=== PATIENT | female | born 1950 | race Caucasian/White ===

== ENCOUNTER → 2016-12-13 | Outpatient (CLI) | payer BC ==
[~2016-12-13] MED LIST: ATV5 PO; CALC500C70 PO; CALC625T8 PO; CRD200 PO; CRG125 PO; DOCU100C31 PO; MULT-190 PO; MULTIVITAMIN SENIOR PO; SIMV40TA2 PO; SYMIN160 INH
[2016-12-13 09:44] LABS: BASO % 0.5 %; BASO ABS # 0.03 K/uL (0-0.2); COMPLETE YES; EOS % 2.3 %; HEMATOCRIT 41.1 % (37-47); IG% 0.4 %; LYMPH % 26.8 %; LYMPH ABS # 1.49 K/uL (1.2-3.4); MEAN CELL VOLUME 102.2 fL (80-100); MEAN CORPUSCULAR HEMOGLOBIN 33.8 pg (25-34); MEAN CORPUSCULAR HGB CONC 33.1 g/dl (32-36); MONO % 7.7 %; NEUT % 62.3 %; PLATELET COUNT 258 K/uL (130-400); RED BLOOD COUNT 4.02 M/uL (4.2-5.4); WHITE BLOOD COUNT 5.55 K/uL (4.8-10.8)
[2016-12-13 09:59] LABS: ALT/SGPT 24 U/L (12-78); BLOOD UREA NITROGEN 10 mg/dl (7-18); CARBON DIOXIDE 30 mmol/L (21-32); CHLORIDE 104 mmol/L (98-107); CHOLESTEROL 219 mg/dl (0-200); CREATININE 0.68 mg/dl (0.60-1.20); GLUCOSE 83 mg/dl (70-99); POTASSIUM 3.8 mmol/L (3.5-5.1); SODIUM 142 mmol/L (136-145); TRIGLYCERIDES 89 mg/dl (0-150); VERY LOW DENSITY LIPOPROT CALC 18 mg/dl
[2016-12-13 10:17] LABS: ESTIMATED AVERAGE GLUCOSE 111 mg/dl; HA1C FLAG Normal (Normal)
[2016-12-13 10:20] LABS: ALB/GLOB RATIO 0.8 (0.9-2); ALKALINE PHOSPHATASE 78 U/L (45-117); AST/SGOT 21 U/L (15-37); CHOLESTEROL/HDL RATIO 2.2; HDL CHOLESTEROL 100 mg/dl; LDL CHOLESTEROL CALCULATED 101 mg/dl
[2016-12-13 10:54] LABS: LYME DISEASE AB IGG NEG (NEG); LYME DISEASE AB IGM NEG (NEG)
[2016-12-14 11:57] LABS: C-REACTIVE PROT HIGHSEN 4.1 MG/L
--- NOTE | 2016-12-18 12:33 | CODING QUERY MEDICAL NECESSITY ---
SUPPORTING DIAGNOSIS NEEDED A supporting diagnosis is required for the test/procedure performed on this patient in order for us to be reimbursed by the patient's insurance. Please provide a supporting diagnosis for the following test/procedure listed below next to the test name along with your signature. *If there is no additional diagnosis for this patient that would support the following test/procedure please document that below next to the test/procedure. Test(s)/Procedure(s) that require a supporting diagnosis: * VITAMIN D 25-HYDROXY DIAGNOSIS: * VITAMIN B-12 LEVEL DIAGNOSIS: * C-REACTIVE PROTEIN DIAGNOSIS: * DOS: 12/13/16 Provider Signature: Date: Thank you Lisa De Paz Health Information Management Once completed, please kindly fax back to [phone] For questions please call [phone]
== END | disposition home or self-care (01) ==
LOC: C.LAB 07:04
PROVIDERS: ATTEND Family Medicine
DX: R73.09 Other abnormal glucose (principal); R53.83 Other fatigue; I10 Essential (primary) hypertension; D51.9 Vitamin B12 deficiency anemia, unspecified; E55.9 Vitamin D deficiency, unspecified

== ENCOUNTER → 2017-06-21 | Outpatient (CLI) | payer BC ==
[2017-06-21 09:34] LABS: BASO % 0.6 %; BASO ABS # 0.04 K/uL (0-0.2); COMPLETE YES; EOS % 1.8 %; HEMATOCRIT 42.4 % (37-47); IG% 0.2 %; LYMPH % 21.5 %; LYMPH ABS # 1.35 K/uL (1.2-3.4); MEAN CELL VOLUME 103.9 fL (80-100); MEAN CORPUSCULAR HEMOGLOBIN 34.3 pg (25-34); MEAN PLATELET VOLUME 10.2 fL (7.4-10.4); MONO % 5.4 %; NEUT % 70.5 %; PLATELET COUNT 275 K/uL (130-400); RED BLOOD COUNT 4.08 M/uL (4.2-5.4); WHITE BLOOD COUNT 6.27 K/uL (4.8-10.8)
[2017-06-21 09:54] LABS: ESTIMATED AVERAGE GLUCOSE 111 mg/dl; HA1C FLAG Normal (Normal)
[2017-06-21 09:58] LABS: ALT/SGPT 24 U/L (12-78); BLOOD UREA NITROGEN 12 mg/dl (7-18); BUN/CREATININE RATIO 15.9 (10-20); CALCIUM 10.1 mg/dl (8.5-10.1); CARBON DIOXIDE 31 mmol/L (21-32); CHLORIDE 102 mmol/L (98-107); CHOLESTEROL 215 mg/dl (0-200); CREATININE 0.73 mg/dl (0.60-1.20); GLUCOSE 100 mg/dl (70-99); SODIUM 139 mmol/L (136-145); TRIGLYCERIDES 46 mg/dl (0-150); URIC ACID 4.3 mg/dl (2.6-7.2); VERY LOW DENSITY LIPOPROT CALC 9 mg/dl
[2017-06-21 10:07] LABS: ALB/GLOB RATIO 0.9 (0.9-2); ALKALINE PHOSPHATASE 78 U/L (45-117); AST/SGOT 20 U/L (15-37); CHOLESTEROL/HDL RATIO 2.3; HDL CHOLESTEROL 93 mg/dl; LDL CHOLESTEROL CALCULATED 113 mg/dl; PHOSPHORUS 3.5 mg/dl (2.5-4.9)
[2017-06-24 14:39] LABS: C-REACTIVE PROT HIGHSEN 7.1 MG/L
--- NOTE | 2017-07-01 10:47 | CODING QUERY MEDICAL NECESSITY ---
CQSUPPORTING DIAGNOSIS NEEDED A supporting diagnosis is required for the test/procedure performed on this patient in order for us to be reimbursed by the patient's insurance. Please provide a supporting diagnosis for the following test/procedure listed below next to the test name along with your signature. *If there is no additional diagnosis for this patient that would support the following test/procedure please document that below next to the test/procedure. Test(s)/Procedure(s) that require a supporting diagnosis: DOS 06/21/17 C-REACTIVE PROTEIN HIGH SENSITIVITY TEST Provider Signature: Date: Thank you Lea Thacker Health Information Management Once completed, please kindly fax back to [phone] For questions please call [phone]
== END | disposition home or self-care (01) ==
LOC: C.LAB 07:46
PROVIDERS: ATTEND Family Medicine
DX: R73.09 Other abnormal glucose (principal); E55.9 Vitamin D deficiency, unspecified; D51.9 Vitamin B12 deficiency anemia, unspecified

== ENCOUNTER → 2017-12-19 | Outpatient (CLI) | payer BC ==
[2017-12-19 09:33] LABS: BASO % 0.7 %; BASO ABS # 0.04 K/uL (0-0.2); EOS % 2.6 %; EOS ABS # 0.15 K/uL (0-0.5); HEMATOCRIT 42.5 % (37-47); HEMOGLOBIN 14.3 g/dL (12.0-16.0); IG# 0.01 K/uL (0.00-0.02); LYMPH % 31.1 %; LYMPH ABS # 1.81 K/uL (1.2-3.4); MEAN CELL VOLUME 103.4 fL (80-100); MEAN CORPUSCULAR HEMOGLOBIN 34.8 pg (25-34); MEAN CORPUSCULAR HGB CONC 33.6 g/dl (32-36); MEAN PLATELET VOLUME 10.3 fL (7.4-10.4); MONO % 7.2 %; MONO ABS # 0.42 K/uL (0.11-0.59); NEUT % 58.2 %; NEUT ABS # 3.39 K/uL (1.4-6.5); PLATELET COUNT 265 K/uL (130-400); RED CELL DISTRIBUTION WIDTH CV 12.9 % (11.5-14.5); RED CELL DISTRIBUTION WIDTH SD 48.4 fL (36.4-46.3); WHITE BLOOD COUNT 5.82 K/uL (4.8-10.8)
[2017-12-19 10:24] LABS: ALBUMIN 3.7 gm/dl (3.4-5.0); ALT/SGPT 24 U/L (12-78); AST/SGOT 22 U/L (15-37); BLOOD UREA NITROGEN 15 mg/dl (7-18); CALCIUM 9.5 mg/dl (8.5-10.1); CARBON DIOXIDE 27 mmol/L (21-32); CHOLESTEROL 213 mg/dl (0-200); CREATININE 0.74 mg/dl (0.60-1.20); GLUCOSE 79 mg/dl (70-99); SODIUM 138 mmol/L (136-145); TRANSFERRIN 286 mg/dl (200-360); URIC ACID 4.4 mg/dl (2.6-7.2)
[2017-12-19 10:33] LABS: ALKALINE PHOSPHATASE 83 U/L (45-117); LDL CHOLESTEROL CALCULATED 109 mg/dl
[2017-12-19 10:55] LABS: HEMOGLOBIN A1C 5.5 % (4.5-5.6)
== END | disposition home or self-care (01) ==
LOC: C.LAB 07:25
PROVIDERS: ATTEND Family Medicine
DX: E88.81 Metabolic syndrome and other insulin resistance (principal); E55.9 Vitamin D deficiency, unspecified; D51.9 Vitamin B12 deficiency anemia, unspecified; E78.9 Disorder of lipoprotein metabolism, unspecified; R53.83 Other fatigue

== ENCOUNTER → 2018-01-27 | Day surgery (SDC) | payer BC ==
[2018-01-24 16:03] VITALS: BMI 32.0
[~2018-01-27] VITALS: Ht 165.1 cm; Wt 89.1 kg
[~2018-01-27] MED LIST changes: +AMIO200T4 PO; +ATOR10TA82 PO; -ATV5 PO; +CARV12.52 PO; +CHOL1000 PO; +COEN100C11 PO; -CRD200 PO; -CRG125 PO; +CYAN10005 PO; -DOCU100C31 PO; +LEVO50TA6 PO; +LIDOCAINE HCL 2% 2 ML VIAL (20MG/ML) ONE; +LORA-741 PO; -MULT-190 PO; +MULT-506 PO; -MULTIVITAMIN SENIOR PO; +PROPOFOL IV EMULSION 10 MG/ML 20 ML VIAL IV ONE; -SIMV40TA2 PO; -SYMIN160 INH
[2018-01-27 14:06] VITALS: Ht 165.1 cm; Wt 89.1 kg
[2018-01-27 14:15] VITALS: TEMP 36.6
--- NOTE | 2018-01-27 15:01 | Endo History and Physical ---
History & Physical Date of Service: Jan 27, 2018. Chief Complaint: hx polyps Referring Physician: DR. JAMIL History of Present Illness For colonoscopy Past Surgical History Hx Cardiac Surgery: Yes (HEART VALVE REPaired) Hx Internal Defibrillator: Yes (defibrillator ) Hx Abdominal Surgery: Yes (APPY) Hx of Implantable Prosthesis: No Hx Post-Op Nausea and Vomiting: No Hx Cancer Surgery: No Hx Thoracic Surgery: No Hx Orthopedic: Yes (orif right ankle) Hx Urinary Tract Surgery: No Family History None Social History Smoking Status: Never Smoker Hx Substance Use: No Hx Alcohol Use: Yes (GIN ,1 GLASS A DAY) Allergies Coded Allergies: Crab (Verified Allergy, Unknown, upset stomach, 01/24/18) Sesame Oil (Verified Allergy, Unknown, itchy, throat swelling, 01/27/18) Sesame Seed (Verified Allergy, Unknown, itchy, throat swelling, 01/27/18) No Known Allergies (Verified , 01/27/18) Current Medications Reported Home Medications Medications Dose Route/Sig Max Daily Dose Days Date Category Dose Instructions Vitamin D3 (Cholecalciferol) 1,000 Unit Tab 1 Tab PO DAILY 01/24/18 Reported Vitamin B-12 (Cyanocobalamin) 1,000 Mcg Tab 1,000 Mcg PO DAILY 01/24/18 Reported Coq-10 (Coenzyme Q10 (Ubidecarenone)) 100 Mg Cap 100 Mg PO QAM 01/24/18 Reported Multivitamin (Multivitamins) Tab 1 Tab PO DAILY 01/24/18 Reported Cordarone (Amiodarone Hcl) 200 Mg Tab 100 Mg PO QAM 01/24/18 Reported Coreg (Carvedilol) 12.5 Mg Tab 12.5 Mg PO BID 01/24/18 Reported Ativan (Lorazepam) 0.5 Mg Tab 0.5 Mg PO HS 01/24/18 Reported Lipitor (Atorvastatin Calcium) 10 Mg Tab 10 Mg PO QAM 01/24/18 Reported Levothyroxine Sodium 50 Mcg Tab 1 Tab PO QAM 01/24/18 Reported Os-Keven 500 Plus D (Calcium/Vitamin D) Tab 1 Tab PO BID 01/12/14 Reported Fiber-Lax (Calcium Polycarbophil) 625 Mg Tab 500 Mg PO D 01/12/14 Reported TAKE 2 TABS Vital Signs Weight (Kilograms): 89.09 Height (Feet): 5 Height (Inches): 5 Date Time Temp Pulse Resp B/P (MAP) Pulse Ox O2 Delivery O2 Flow Rate FiO2 01/27/18 14:15 36.6 67 18 160/93 (115) 96 Room Air Physical Exam General Appearance: + obese Respiratory/Chest: Respiratory effort: no dyspnea Cardiovascular: Heart Auscultation: RRR Abdomen: Inspection & Palpation: soft Assessment and Plan Hx polyps for colonoscopy
--- NOTE | 2018-01-27 15:24 | Discharge Instructions ---
Endoscopy Patient Instructions Date / Procedure(s) Performed Jan 27, 2018. Colonoscopy Allergy Information Coded Allergies: Crab (Verified Allergy, Unknown, upset stomach, 01/24/18) Sesame Oil (Verified Allergy, Unknown, itchy, throat swelling, 01/27/18) Sesame Seed (Verified Allergy, Unknown, itchy, throat swelling, 01/27/18) No Known Allergies (Verified , 01/27/18) Discharge Date / Findings Jan 27, 2018. diverticulosis Medication Instructions Restart Stopped Medication(s): resume meds Reported Home Medications Medications Dose Route/Sig Max Daily Dose Days Date Category Dose Instructions Vitamin D3 (Cholecalciferol) 1,000 Unit Tab 1 Tab PO DAILY 01/24/18 Reported Vitamin B-12 (Cyanocobalamin) 1,000 Mcg Tab 1,000 Mcg PO DAILY 01/24/18 Reported Coq-10 (Coenzyme Q10 (Ubidecarenone)) 100 Mg Cap 100 Mg PO QAM 01/24/18 Reported Multivitamin (Multivitamins) Tab 1 Tab PO DAILY 01/24/18 Reported Cordarone (Amiodarone Hcl) 200 Mg Tab 100 Mg PO QAM 01/24/18 Reported Coreg (Carvedilol) 12.5 Mg Tab 12.5 Mg PO BID 01/24/18 Reported Ativan (Lorazepam) 0.5 Mg Tab 0.5 Mg PO HS 01/24/18 Reported Lipitor (Atorvastatin Calcium) 10 Mg Tab 10 Mg PO QAM 01/24/18 Reported Levothyroxine Sodium 50 Mcg Tab 1 Tab PO QAM 01/24/18 Reported Os-Keven 500 Plus D (Calcium/Vitamin D) Tab 1 Tab PO BID 01/12/14 Reported Fiber-Lax (Calcium Polycarbophil) 625 Mg Tab 500 Mg PO D 01/12/14 Reported TAKE 2 TABS Provider Instructions Activity Restrictions - No exercising or heavy lifting for 24 hours. - Do not drink alcohol the day of the procedure. - Do not drive a car or operate machinery until the day after the procedure. - Do not make any important decisions or sign important papers in 24 hours after the procedure. Following Day: - Return to full activity which may include returning to work/school. Diet Start your diet with liquids and light foods (jello, soup, juice, toast). Then eat your usual diet if not nauseated. Treatment For Common After Affects For mild abdominal pain, bloating, or excessive gas: - Rest - Eat lightly - Lie on right side Follow-Up Information Follow-up with DR. JAMIL as scheduled Anesthesia Information What You Should Know You have had a procedure that required some medicine to reduce anxiety and discomfort. This treatment is called moderate sedation. After receiving the treatment, you may be sleepy, but you will be able to breathe on your own. The effects of the treatment may last for several hours. Follow these instructions along with Activity/Diet recommendations noted above: * Do NOT do anything where dizziness or clumsiness would be dangerous. * Rest quietly at home today, then you can be up and about tomorrow. * Have a responsible person stay with you the rest of today. * You may have had an I.V. today. If so, you may take the dressing off later today. Recommendations Call your doctor if: * Trouble breathing * Continuous vomiting for more than 24 hours * Temperature above 101 degrees * Severe abdominal pain or bloating * Pain not relieved by pain medicine ordered * There is increased drainage or redness from any incision * A large amount of rectal bleeding greater than 2-3 tablespoons. (If you had a polyp/s removed or have hemorrhoids, a small amount of blood - from the rectum is to be expected.) * You have any unanswered questions or concerns. IN THE EVENT OF A SERIOUS EMERGENCY, GO TO THE NEAREST EMERGENCY ROOM Your discharge instructions were prepared by provider Gwyn Diallo. Patient Instructions Signature Page Justine Benson Patient (or Guardian) Signature/Date: I have read and understand the instructions given to me by my caregivers. Caregiver/RN/Doctor Signature/Date: The above-named patient and/or guardian has received patient instructions on this date. + Original Patient Signature Page (only) stays with chart. Please make copy for patient.
--- NOTE | 2018-01-27 15:26 | GI REPORT ---
Procedure Date: 01/27/2018 3:03 PM Procedure: Colonoscopy Indications: Personal history of colonic polyps Medicines: Propofol total dose 80 mg IV, Lidocaine 40 mg IV Complications: No immediate complications. Estimated Blood Loss: Estimated blood loss: none. Procedure: Pre-Anesthesia Assessment: - Prior to the procedure, a History and Physical was performed, and patient medications, allergies and sensitivities were reviewed. The patient's tolerance of previous anesthesia was reviewed. - The risks and benefits of the procedure and the sedation options and risks were discussed with the patient. All questions were answered and informed consent was obtained. After I obtained informed consent, the scope was passed under direct vision. Throughout the procedure, the patient's blood pressure, pulse, and oxygen saturations were monitored continuously. The scope was introduced through the anus and advanced to the cecum, identified by appendiceal orifice and ileocecal valve. The colonoscopy was performed without difficulty. The patient tolerated the procedure well. The quality of the bowel preparation was excellent. Findings: Multiple diverticula were found in the sigmoid colon and ascending colon. Impression: - Diverticulosis in the sigmoid colon and in the ascending colon. - No specimens collected. Recommendation: - Discharge patient to home (ambulatory). - Continue present medications. - Repeat colonoscopy in 5 years for surveillance. - Return to primary care physician PRN. Gwyn Diallo M.D. Gwyn Diallo MD 01/27/2018 3:26:40 PM This report has been signed electronically. Note Initiated On: 01/27/2018 3:03 PM I attest to the content of the Intraoperative Record and orders documented therein, exceptions below
[2018-01-27 15:55] VITALS: BP 178/98; PULSE 54; O2SAT 98
--- NOTE | 2018-01-27 16:04 | Anesthesiology Progress Note ---
Anesthesia Post Op Note Date & Time Jan 27, 2018 at 16:03 Vital Signs Pain Intensity: 0 Vital Signs Past 12 Hours Date Time Temp Pulse Resp B/P (MAP) Pulse Ox O2 Delivery O2 Flow Rate FiO2 01/27/18 15:55 54 18 178/98 (124) 98 Room Air 01/27/18 15:40 57 18 188/96 (126) 97 Room Air 01/27/18 15:25 65 16 143/74 (97) 98 Room Air 01/27/18 14:15 36.6 67 18 160/93 (115) 96 Room Air Notes Mental Status: alert / awake / arousable, participated in evaluation Pt Amnestic to Procedure: Yes Nausea / Vomiting: adequately controlled Pain: adequately controlled Airway Patency, RR, SpO2: stable & adequate BP & HR: stable & adequate Hydration State: stable & adequate Anesthetic Complications: no major complications apparent
== END | disposition home or self-care (01) ==
LOC: C.GI 13:51
PROVIDERS: ATTEND Internal Medicine Gastroenterology
DX: Z86.010 Personal history of colon polyps (principal); K57.30 Diverticulosis of large intestine without perforation or abscess without bleeding; I10 Essential (primary) hypertension; Z95.0 Presence of cardiac pacemaker; Z91.013 Allergy to seafood; Z90.49 Acquired absence of other specified parts of digestive tract